=== PATIENT | female | born 1950 | race African-American/Black ===

== ENCOUNTER 2020-08-12 05:13 | Day surgery (SDCO) | payer MEDICARE ==
[~2020-08-12 05:13] MED LIST: BONIVA3 MG/3 ML IM; FLEXERIL10 MG PO; K-DUR20 MEQ PO; NORVASC2.5 MG PO; SYNTHROID150 MCG PO; VITAMIN D2000 UNI1 PO
[2020-08-12 05:31] LABS: BASOPHIL 0.1 % (0-2); EOSINOPHIL 0.1 % (0-7); HGB 11.4 g/dl (12.5-16.0); LYMPHOCYTE 41.6 % (15-48); MCH 26.4 pg (25.0-31.0); MONOCYTE 10.8 % (0-12); MPV 9.6 fL (6.0-9.5); NEUTROPHIL 47.1 % (41-80); NRBC 0; PLT 301 K/uL (150-400); RBC 4.32 M/uL (4.20-5.40); RDW 13.7 % (11.5-14.0); WBC 6.7 K/uL (4.0-10.5)
[2020-08-12 05:53] LABS: INR 1.04 (0.9-1.2); PROTHROMBIN TIME 12.9 SECONDS (11.4-13.6); PTT 27.3 SECONDS (22.2-34.7)
[2020-08-12 05:54] LABS: D-DIMER 1.59 ug/mLFEU (0.00-0.41)
[2020-08-12 06:04] LABS: LACTIC ACID 1.2 mmol/L (0.4-1.9)
[2020-08-12 06:10] LABS: ALBUMIN 3.6 g/dL (3.4-5.0); BILIRUBIN - TOTAL 0.2 mg/dL (0.2-1.0); BUN/CREAT RATIO (CALC) 11.8 RATIO; C-REACTIVE PROTEIN 1.1 mg/dL (<=0.90); CREATININE 1.1 mg/dL (0.51-0.95); GLOBULIN (CALCULATION) 4.1 g/dL; POTASSIUM 3.9 mmol/L (3.5-5.1); TOTAL PROTEIN 7.7 g/dL (6.4-8.2)
[2020-08-12 08:34] LABS: BILIRUBIN NEGATIVE (NEGATIVE); BLOOD NEGATIVE Ery/uL (NEGATIVE); CLARITY CLEAR (CLEAR); COLOR YELLOW (YELLOW); GLUCOSE (U) NORMAL (NORMAL); LEUKOCYTES NEGATIVE Leu/uL (NEGATIVE); NITRITE NEGATIVE (NEGATIVE); PROTEIN NEGATIVE (NEGATIVE); UROBILINOGEN 0.2 mg/dL (0.2-1.0)
[2020-08-12] MEDS ORDERED: PRILOSEC20 MG PO (11:54)
[2020-08-12] MEDS ORDERED: VITAMIN B-121000 MC1 PO (11:55)
[2020-08-12] MEDS ORDERED: METFORMIN HCL500 MG PO (11:55)
[2020-08-12] MEDS ORDERED: PAXIL20 MG PO (11:56)
[2020-08-13 04:51] LABS: CREATININE 0.9 mg/dL (0.51-0.95); POTASSIUM 3.7 mmol/L (3.5-5.1)
== END 2020-08-13 10:44 | disposition home or self-care (01) ==
LOC: FER 05:13 → FMS 08:29
PROVIDERS: Emergency Medicine Emergency Medical Services; ADMIT Allergy & Immunology Allergy
DX: R55 Syncope and collapse (principal); U07.1 COVID-19; E11.9 Type 2 diabetes mellitus without complications; E03.9 Hypothyroidism, unspecified; K21.9 Gastro-esophageal reflux disease without esophagitis; I10 Essential (primary) hypertension; G93.0 Cerebral cysts; R32 Unspecified urinary incontinence; R91.8 Other nonspecific abnormal finding of lung field; Z98.51 Tubal ligation status; Z90.49 Acquired absence of other specified parts of digestive tract; Z88.2 Allergy status to sulfonamides; Z79.84 Long term (current) use of oral hypoglycemic drugs
CPT/HCPCS: 36415; 70450; 71045; 71275; 80048; 80053; 81003; 82550; 82728; 83605; 84145; 84484; 85025; 85379; 85610; 85730; 86140; 87040; 87088; 93005; 94010; 94667; 94668; 94760; 94762; G0378; J1100; J1650; J7030; M0239; Q9967; U0002